=== PATIENT | female | born 1980 | race Caucasian/White ===

== ENCOUNTER 2016-06-19 05:47 | Inpatient (IN) | payer OTHER ==
[2016-06-19 06:12] VITALS: BMI 32.9
[2016-06-19] MEDS ORDERED: OXYTOCIN IN LR 500 ML IV ONE ×2 (06:39→07:02)
[2016-06-19] MEDS ORDERED: OXYTOCIN 10 UNITS/ML VIAL ONE (07:01)
[2016-06-19] MEDS ORDERED: MINERAL OIL 25 ML BOT ONE (07:01)
[2016-06-19] MEDS ORDERED: LIDOCAINE 1% (PRES FREE) 30 ML VIAL ONE (07:02)
[2016-06-19] MEDS ORDERED: IV START KIT ONE (07:02)
[2016-06-19] MEDS ORDERED: LIDOCAINE Viscous 2% 15 ML UDCUP ONE (07:02)
[2016-06-19] MEDS ORDERED: LACTATED RINGERS 1,000 ML ONE (07:02)
[2016-06-19] MEDS ORDERED: PUMP TUBING ONE (07:02)
[2016-06-19] MEDS: LACTATED RINGERS 1,000 ML IV PRN ×2 (07:28→07:55)
[2016-06-19] MEDS ORDERED: EPIDURAL PUMP SET ONE (07:29)
[2016-06-19] MEDS ORDERED: FENTANYL/ROPIVACAINE EPIDURAL 250 ML EP ONE (07:30)
[2016-06-19 07:33] LABS: HEMATOCRIT 39.9 % (37.0-47.0); MEAN CELL VOLUME 86.7 fl (81.0-99.0); MEAN CORPUSCULAR HEMOGLOBIN 30.4 pg (27.0-31.0); MEAN CORPUSCULAR HGB CONC 35.1 g/dl (33.0-37.0); RED CELL DISTRIBUTION WIDTH 13.6 % (11.5-14.5)
[2016-06-19] MEDS ORDERED: BUPIVACAINE 0.25% (PRES FREE) 30 ML VIAL ONE (07:53)
[2016-06-19] MEDS ORDERED: EPIDURAL PROCEDURE TRAY ONE (07:53)
--- NOTE | 2016-06-19 08:52 | PCMAN ---
OB Admission Note - History : 5 Term: 2 : 0 Abortions (S&E): 2 Livin Gestational Age (weeks): 40 Days (#/7): 3 Admit Cervical Dilation:: 5.5 Admit Cervical Effacement (%):: 90 Admit Station:: -2 Admit Presentaton:: vertex Membrane Status: Bulging Rupture (Date): 06/19/16 Rupture (Time): 09:27 Membranes Comment:: clear Labor Onset (Date): 06/19/16 Labor Onset (Time): 04:30 Contractions: Yes Contraction Frequency:: 4-5 Heart Rate:: 130 Status:: category 1 EFW:: 8 Summary of Course:: Uncomplicated course, dates calculated by LMP, confirmed by US. - Labs Blood Type: O (+) positive Hct/Hgb:: 39.9/14 Rubella Status: Immune GBS Status: Negative Abnormal Labs: None Other Labs:: 1 hr GTT 78 - Physical Exam General: Afebrile, No Acute Distress Psych/Mental Status: Mood/Affect Appropriate Neurological: Grossly Intact, Alert, Oriented x 4, Normal Speech HEENT: Atraumatic, PERRLA, EOMI, Mucous membr. moist/pink Lungs: Clear to Auscultation Bilaterally Cardiovascular: Regular Rate and Rhythm, No Murmur Abdomen: Normal Bowel Sounds Genitourinary: Normal Female Genitalia, Indwelling Urinary Cath Rectal Exam: Deferred Extremities: Full ROM, Edema (1+) Skin: Normal Color, Warm, Dry, Intact, No Rash - Problems (1) Post term over 40 weeks Status: Acute Code: O48.0 Assessment/Plan: Expect , epidural in place now.
[2016-06-19] MEDS ORDERED: CALCIUM CARBONATE 500 MG TAB.CHEW PO PRN (11:29)
[2016-06-19] MEDS ORDERED: ACETAMINOPHEN 325 MG TABLET PO PRN (11:29)
[2016-06-19] MEDS ORDERED: BENZOCAINE/MENTHOL 60 APPLIC/BOT TP PRN (11:29)
[2016-06-19] MEDS ORDERED: OXYCODONE HCL 5 MG TABLET PO PRN (11:29)
--- NOTE | 2016-06-19 11:33 | PCMDEL ---
Delivery Note - Labor 1st stage (hr/min):: 4 hr/ 49 min 2nd stage (hr/min):: 17 min 3rd stage (hr/min):: 10 min Total (hr/min):: 5 hr/16 min Pushed (hr/min):: 17 min - Delivery Delivery (Date): 06/19/16 Delivery (Time): 09:19 Gender: Female Weight: 4.4 kg Presentation: Cephalic Position: OA Umbilical Cord: 3 Vessel Delayed Cord Clamping:: > 3 min 1 Minute Total: 9 5 Minute Total: 9 Placenta:: intact EBL:: 300 ml Perineum:: 2nd degree midline perineal laceration Suture:: 2-0 and 3-0 chromic Anesthesia/Meds:: Epidural Length ROM:: 52 min Comments:: Beautiful, uncomplicated vaginal delivery.
[2016-06-19] MEDS: IBUPROFEN 800 MG TABLET PO PRN ×2 (11:40→17:37)
[2016-06-19] MEDS: DOCUSATE SODIUM 100 MG CAPSULE PO PRN (17:40)
[2016-06-19] MEDS: OXYCODONE/ACETAMINOPHEN 5/325 MG TABLET PO PRN (19:24)
[2016-06-20] MEDS: IBUPROFEN 800 MG TABLET PO PRN ×4 (00:47→22:44)
[2016-06-20] MEDS: OXYCODONE/ACETAMINOPHEN 5/325 MG TABLET PO PRN (03:35)
[2016-06-20] MEDS: LANOLIN 50 APPLIC/7G TUBE TP PRN (03:35)
--- NOTE | 2016-06-20 07:29 | PDOC44 ---
- Subjective Day: 1 Reports Flatus, Reports Pain Tolerable, Reports , Reports Lochia Moderate, Reports Tolerating Regular Diet, Denies Nausea - Objective Temp Pulse Resp BP Pulse Ox 98.2 F 81 16 130/81 06/20/16 03:37 06/20/16 03:37 06/20/16 03:37 06/20/16 03:37 Lab Results 06/19/16 07:20 WBC 12.2 H RBC 4.60 Hgb 14.0 Hct 39.9 Plt Count 180 Current Medications Generic Name Dose Route Start Last Admin Trade Name Freq PRN Reason Stop Dose Admin Acetaminophen 325 - 650 mg 06/19/16 11:29 Tylenol PO Q4H PRN Pain (Mild) Benzocaine/Menthol 1 applic 06/19/16 11:29 06/19/16 11:41 Dermoplast TP 1 bot PRN PRN Administration Patient Comfort Calcium Carbonate/Glycine 500 - 1,000 mg 06/19/16 11:29 Tums PO BID PRN Indigestion Docusate Sodium 100 mg 06/19/16 11:29 06/19/16 17:40 Colace PO 100 mg DAILY PRN Administration Comfort Emollient Ointment 1 applic 06/19/16 11:29 06/20/16 03:35 [id number]-[id number] TP 1 tube PRN PRN Administration sore nipples Ibuprofen 800 mg 06/19/16 11:29 06/20/16 00:47 Motrin PO 800 mg Q6H PRN Administration Pain (Mild) Multivi/Iron Carb/Fe Sulf/FA/Prenat 1 tab 06/20/16 09:00 Plus PO DAILY IRENA Oxycodone HCl 5 - 10 mg 06/19/16 11:29 Roxicodone PO Q3H PRN Pain (Severe) Oxycodone/Acetaminophen 1 - 2 tab 06/19/16 11:29 06/20/16 03:35 Percocet 5/325 PO 1 tab Q4H PRN Administration Pain (Moderate) Sodium Chloride 10 ml 06/19/16 09:00 06/20/16 02:05 Normal Saline 10ml Flush IV Not Given Q8HR IRENA Sodium Chloride 10 ml 06/19/16 11:29 Normal Saline 10ml Flush IV PRN PRN IV Flush - Physical Exam General: Afebrile, No Acute Distress Psych/Mental Status: Mood/Affect Appropriate, Bonding Well Neurological: Alert, Oriented x 4, Normal Speech, Normal Reflexes, Cranial Nerves 3-12 Intact HEENT: Atraumatic, PERRLA, EOMI, Mucous membr. moist/pink Lungs: Clear to Auscultation Bilaterally Cardiovascular: Regular Rate and Rhythm, No Murmur Breast: Soft, Skin intact, Nipples Intact, No Nipples Cracked Fundus: Firm, Midline, At Umbilicus Abdomen: Normal Bowel Sounds Genitourinary: Normal Female Genitalia, Edema (mild labial) Lochia: Light Extremities: Full ROM, Edema (1+), No Tenderness Skin: Normal Color, Warm, Dry, Intact, No Rash Wound STAFF REPORTER: Well Approximated (sutures intact) - Problems:Assessment/Plan (1) Normal vaginal delivery Status: Acute Assessment/Plan: stable, continue routine post care. (2) Perineal laceration during delivery, delivered Status: Acute Assessment/Plan: healing well, some labial swelling but no patient complaints Disposition: Stable, Anticipate DC Home Tomorrow
[2016-06-20 07:36] LABS: HEMATOCRIT 35.3 % (37.0-47.0); HEMOGLOBIN 11.9 gm/l (12.0-16.0)
[2016-06-20] MEDS: DOCUSATE SODIUM 100 MG CAPSULE PO PRN (09:10)
[2016-06-20] MEDS: PRENATAL VIT/FE FUMARATE/FA 1 TABLET PO SCH (09:10)
[2016-06-21] MEDS: LANOLIN 50 APPLIC/7G TUBE TP PRN (00:47)
[2016-06-21] MEDS: IBUPROFEN 800 MG TABLET PO PRN ×2 (05:50→12:42)
[2016-06-21 07:57] VITALS: BP 101/62
[2016-06-21] MEDS: PRENATAL VIT/FE FUMARATE/FA 1 TABLET PO SCH (08:48)
[2016-06-21] MEDS: DOCUSATE SODIUM 100 MG CAPSULE PO PRN (08:48)
--- NOTE | 2016-06-21 12:11 | PDOC39B ---
Hospital Course: ADMIT DATE: 06/19/16 DISCHARGE DATE: 06/21/16 ADMISSION DIAGNOSES: Post term PROCEDURES: Spontaneous Vaginal Delivery. Second degree perineal laceration repair. HISTORY OF PRESENT ILLNESS: 35 year old G5 T2 L2 at 40 weeks 3 days presenting with spontaneous labor, had an uncomplicated vaginal delivery with 2nd degree perineal laceration. HOSPITAL COURSE: The patient had an uncomplicated post course. By day of discharge the patient is ambulating, eating, voiding, and passing flatus without difficulty. Pain is controlled and lochia is appropriate. She is [] - Physical Exam Vital Signs: Temp Pulse Resp BP Pulse Ox 97.9 F 88 16 101/62 06/21/16 07:06 06/21/16 07:06 06/21/16 07:06 06/21/16 07:06 General: Afebrile, No Acute Distress Psych/Mental Status: Mood/Affect Appropriate, Judgment/Insight Intact Neurological: Grossly Intact, Alert, Oriented x 4, Normal Speech, Normal Reflexes, Cranial Nerves 3-12 Intact HEENT: Atraumatic, PERRLA, EOMI, Mucous membr. moist/pink Lungs: Clear to Auscultation Bilaterally Cardiovascular: Regular Rate and Rhythm, No Murmur Breast: Soft, Tenderness (left nipple), Nipples Cracked (left) Fundus: Firm, Midline, Below Umbilicus Abdomen: Normal Bowel Sounds Genitourinary: Normal Female Genitalia, No Edema Lochia: Light Extremities: Full ROM, No Edema Deep Tendon Reflexes: Patellar (L): 2+ (Brisk, Normal), Patellar (R): 2+ (Brisk , Normal) Skin: Normal Color, Warm, Dry, Intact, No Rash Wound: Dressing Clean/Dry/Intact, Well Approximated - Discharge Diagnosis (1) Normal vaginal delivery Status: Acute Assessment/Plan: stable, discharge home. (2) Perineal laceration during delivery, delivered Status: Acute Assessment/Plan: healing well, some labial swelling but no patient complaints. Sutures intact. (3) Cracked nipple associated with Status: Acute Assessment/Plan: left side, she has seen end user consultant and started treating her nipple appropriately with shield and Lanolin. - Discharge Plan Condition: Good Disposition: Home Instruction Forms: Vaginal Discharge Instructions Prescriptions: Ibuprofen [IBUPROFEN 800 MG TABLET (SHF)] 800 mg PO Q6H PRN #30 tablet PRN Reason: Pain (Mild) Oxycodone HCl/Acetaminophen [PERCOCET 5/325 MG TABLET (F)] 1 - 2 tab PO Q4H PRN #16 tablet PRN Reason: Pain (Moderate) Vitamin D3 [VITAMIN D3 1000 UNITS SOFTGEL (F)] 5,000 units PO DAILY #100 softgel Follow-Up: Naina Salcido MD [Primary Care Provider] - In 6 weeks
== END 2016-06-21 13:09 | disposition home or self-care (01) | DRG 775 ==
LOC: FBC 05:47 → FBCOUT 05:47 → FBC 06:43
PROVIDERS: ADMIT Family Medicine; ATTEND Family Medicine
PROC: 10E0XZZ Delivery of Products of Conception, External Approach (ICD-10-PCS; principal; 2016-06-19)
PROC: 0KQM0ZZ Repair Perineum Muscle, Open Approach (ICD-10-PCS; 2016-06-19)
DX: O48.0 Post-term pregnancy (principal); O70.1 Second degree perineal laceration during delivery; Z3A.40 40 weeks gestation of pregnancy; Z37.0 Single live birth